=== PATIENT | female | born 1990 | race Asian ===

== ENCOUNTER 2016-06-11 18:44 | Emergency (ER) | payer SELFPAY ==
[2016-06-11 19:31] VITALS: BP 110/65
== END 2016-06-11 19:31 | disposition home or self-care (01) ==
LOC: ED 18:44
DX: S01.91XD Laceration without foreign body of unspecified part of head, subsequent encounter (principal); X58.XXXD Exposure to other specified factors, subsequent encounter; Y92.89 Other specified places as the place of occurrence of the external cause; Y99.8 Other external cause status

== ENCOUNTER 2016-07-03 11:46 | Emergency (ER) | payer SELFPAY ==
[~2016-07-03] VITALS: Ht 167.6 cm; Wt 53.5 kg
[2016-07-03 11:53] VITALS: BP 121/95
== END 2016-07-03 16:02 | disposition home or self-care (01) ==
LOC: ED 11:46
DX: R21 Rash and other nonspecific skin eruption (principal)